=== PATIENT | male | born 1975 | race Caucasian/White ===

== ENCOUNTER 2018-05-13 21:46 | Emergency (ER) | payer OTHER ==
[~2018-05-13] VITALS: Ht 154.9 cm; Wt 81.7 kg
[2018-05-13] MEDS ORDERED: LISINOPRIL10 MG PO (21:59)
[2018-05-13] MEDS ORDERED: MEDROLDOSEPACK PO (22:28)
[2018-05-13 22:44] VITALS: BP 133/75
--- NOTE | 2018-05-14 14:18 | EKG ---
[place] [address] ELECTROCARDIOGRAM REPORT Name: YUNIERMARCO ANTONIO Lozoya Room: [facility]#: [id number] Admission: 05/13/18 Attend Phys: Discharge: 05/13/18 Date of : 77 Report #: [id number] THIS REPORT FOR: //name// [facility] ED Test Date: 2018-05-13 Test Time: 21:58:09 Pat Name: MARCO ANTONIO FAYE Department: Room: Gender: M Material Assistant: NADIA : 1975 Requested By: Jerson Padilla Order Number: [id number] MD: Efra Resendiz Measurements Intervals [place] Rate: 74 P: 46 NC: 161 QRS: 40 QRSD: 87 T: 31 QT: 351 QTc: 390 Interpretive Statements Sinus rhythm Borderline T wave abnormalities No previous ECG available for comparison Electronically Signed On 05-14-2018 14:18:17 [employer] by Efra Resendiz [email or web address] <ELECTRONICALLY SIGNED> By: Efra Resendiz MD, [facility] 05/14/18 1418 [id number] Efra Resendiz MD, FACC /EPI
== END 2018-05-13 22:44 | disposition home or self-care (01) ==
LOC: M.ERS 21:46
DX: M25.512 Pain in left shoulder (principal); I10 Essential (primary) hypertension; F17.210 Nicotine dependence, cigarettes, uncomplicated